=== PATIENT | female | born 1980 | race Caucasian/White ===

== ENCOUNTER 2016-10-14 20:36 | Emergency (ER) | payer OTHER ==
[2016-10-14 20:59] VITALS: BP 113/62
[2016-10-14] MEDS ORDERED: Amoxicillin CAP* 500 MG PO ONE (21:24)
--- NOTE | 2016-10-14 21:29 | UC ---
Ear Complaint HPI - HPI Summary HPI Summary: pt c/o gradual onset of left ear pain. Pt has history of OM. - History of Current Complaint Chief Complaint: UCEar Stated Complaint: EAR PAIN Time Seen by Provider: 10/14/16 21:17 Hx Obtained From: Patient Hx Last Menstrual Period: mirana ?: No Onset/Duration: Gradual Onset, Lasting Days Severity Initially: Mild Severity Currently: Mild - Allergies/Home Medications Allergies/Adverse Reactions: Allergies Allergy/AdvReac Type Severity Reaction Status Date / Time No Known Allergies Allergy Verified 10/14/16 20:59 Home Medications: Home Medications Levonorgestrel (Iud) [Mirena IUD] 20 mcg IU 10/14/16 [History] PMH/Surg Hx/FS Hx/Imm Hx Previously Healthy: Yes - Surgical History Surgical History: Yes Surgery Procedure, Year, and Place: gallbladder removed, tubaligation, T&A - Family History Known Family History: Positive: Cardiac Disease - Social History Occupation: Employed Full-time Alcohol Use: None Substance Use Type: None Smoking Status (MU): Former Smoker Review of Systems Constitutional: Negative Skin: Negative Eyes: Negative ENT: Ear Ache Respiratory: Negative Cardiovascular: Negative Gastrointestinal: Negative Genitourinary: Negative Motor: Negative Neurovascular: Negative Musculoskeletal: Negative Neurological: Negative Psychological: Negative All Other Systems Reviewed And Are Negative: Yes Physical Exam Triage Information Reviewed: Yes Vital Signs: Initial Vital Signs Temp 98.0 F 10/14/16 20:53 Pulse 76 10/14/16 20:53 Resp 18 10/14/16 20:53 BP 113/62 10/14/16 20:53 Pulse Ox 98 10/14/16 20:53 Eye Exam: Normal ENT: Positive: TM bulging - left TM, TM red - left TM Neck exam: Normal Respiratory Exam: Normal Cardiovascular Exam: Normal Musculoskeletal Exam: Normal Neurological Exam: Normal Psychological Exam: Normal Skin Exam: Normal Ear Complaint Course/Dx - Differential Dx/Diagnosis Differential Diagnosis/HQI/PQRI: Otitis Media Provider Diagnoses: otitis media left TM Discharge - Discharge Plan Condition: Stable Disposition: HOME Prescriptions: Amoxicillin CAP* [Amoxicillin 500 MG CAP*] 500 mg PO Q12H #14 cap Patient Education Materials: Otitis Media (ED) Referrals: [facility] [Outside]
== END 2016-10-14 21:39 | disposition home or self-care (01) ==
LOC: UCCORT 20:36
DX: H66.92 Otitis media, unspecified, left ear (principal); H72.92 Unspecified perforation of tympanic membrane, left ear; Z90.49 Acquired absence of other specified parts of digestive tract; Z87.891 Personal history of nicotine dependence
CPT/HCPCS: 99202; A9270-GY; G0463

== ENCOUNTER 2016-10-16 20:23 | Emergency (ER) | payer OTHER ==
[2016-10-16 20:30] VITALS: BP 120/69
[2016-10-16] MEDS ORDERED: Neomyc/Polym/HC 1% OTIC SUSP* **OTIC LEFT EAR ONE (20:38)
[2016-10-16] MEDS ORDERED: HYDROcodone/ACETAMIN 5-325 MG* 1 TAB PO ONE ×2 (20:39)
--- NOTE | 2016-10-16 21:00 | UC ---
Ear Complaint HPI - HPI Summary HPI Summary: 36 yo female with severe left ear pain x days seen here 2 days ago with OM now left ear canal swollen and left cervical adenopathy no f/c 2 yrs ago had bilateral OE and requires ear tod in both ears - History of Current Complaint Chief Complaint: UCEar Stated Complaint: LFT EAR PAIN Time Seen by Provider: 10/16/16 20:32 Hx Obtained From: Patient Hx Last Menstrual Period: mirena Onset/Duration: Gradual Onset, Lasting Days, Worse Since - 1 day Pain Intensity: 8 Pain Scale Used: 0-10 Numeric Alleviating Factors: Heat Associated Signs/Symptoms: Positive: Swelling @ - L EAC Related History: Prior ENT Surgery, T & A - Allergies/Home Medications Allergies/Adverse Reactions: Allergies Allergy/AdvReac Type Severity Reaction Status Date / Time No Known Allergies Allergy Verified 10/16/16 20:30 PMH/Surg Hx/FS Hx/Imm Hx Previously Healthy: Yes - Surgical History Surgical History: Yes Surgery Procedure, Year, and Place: gallbladder removed, tubaligation, T&A - Family History Known Family History: Positive: Cardiac Disease - Social History Alcohol Use: None Substance Use Type: None Smoking Status (MU): Former Smoker Review of Systems Constitutional: Negative Skin: Negative Eyes: Negative ENT: Ear Ache Respiratory: Negative Cardiovascular: Negative Gastrointestinal: Negative Genitourinary: Negative Motor: Negative Neurovascular: Negative Musculoskeletal: Negative Neurological: Negative Psychological: Negative All Other Systems Reviewed And Are Negative: Yes Physical Exam Triage Information Reviewed: Yes Appearance: Well-Appearing, No Pain Distress, Well-Nourished Vital Signs: Initial Vital Signs Temp 98 F 10/16/16 20:25 Pulse 75 10/16/16 20:25 Resp 14 10/16/16 20:25 BP 120/69 10/16/16 20:25 Pulse Ox 98 10/16/16 20:25 Vital Signs Reviewed: Yes Eyes: Positive: Conjunctiva Clear ENT: Positive: TM bulging - L, TM red - L, Other: - left tragal tenderness, left EAC swollen about 50 %. Negative: Hearing grossly normal, Tonsillar swelling, Tonsillar exudate, Trismus, Muffled/hoarse voice Dental: Negative: Dental Fracture @, Abscess @ Neck: Positive: Supple, Enlarged Nodes @ - left cervical Respiratory: Positive: Lungs clear, Normal breath sounds, No respiratory distress Cardiovascular: Positive: RRR, No Murmur Musculoskeletal: Positive: Strength Intact Neurological: Positive: Alert Psychological Exam: Normal Skin Exam: Normal Ear Complaint Course/Dx - Differential Dx/Diagnosis Provider Diagnoses: Left otitis externa. left otitis media Discharge - Discharge Plan Condition: Stable Disposition: HOME Prescriptions: HYDROcodone/ACETAMIN 5-325 MG* [Christiana 5-325 TAB*] 1 tab PO Q4H PRN #8 tab MDD 4 PRN Reason: Pain Ibuprofen TAB* [Motrin TAB*] 600 mg PO Q6H PRN #40 tab PRN Reason: Pain Patient Education Materials: Otitis Externa (ED) Forms: *Work Release Referrals: Kimmie Farrell MD [Primary Care Provider] - Additional Instructions: in addition to the middle ear infection you also have an infection of your ear canal heating pad recheck in 2-3 days if not improving
== END 2016-10-16 21:00 | disposition home or self-care (01) ==
LOC: UCCORT 20:23
DX: H60.92 Unspecified otitis externa, left ear (principal); H66.92 Otitis media, unspecified, left ear; Z90.49 Acquired absence of other specified parts of digestive tract; Z87.891 Personal history of nicotine dependence
CPT/HCPCS: 99213; A9270-GY; G0463

== ENCOUNTER 2017-01-01 12:07 | Emergency (ER) | payer OTHER ==
[2017-01-01 13:31] VITALS: BP 111/68
--- NOTE | 2017-01-01 13:53 | UC ---
Ear Complaint HPI - HPI Summary HPI Summary: right ear pain for a few days. this feels similar to two prior otitis externas. last one was a few years ago. - History of Current Complaint Chief Complaint: UCEar Stated Complaint: EAR PAIN Time Seen by Provider: 01/01/17 13:41 Hx Obtained From: Patient Hx Last Menstrual Period: HAS THE MIRENA, DOES NOT HAVE REG PERIODS Onset/Duration: Gradual Onset, Lasting Days Severity Initially: Mild Severity Currently: Moderate Aggravating Factors: Nothing Alleviating Factors: Nothing Associated Signs/Symptoms: Negative: Discharge, Hearing Loss, Foreign Body Sensation, Trauma to Ear, URI Symptoms - Allergies/Home Medications Allergies/Adverse Reactions: Allergies Allergy/AdvReac Type Severity Reaction Status Date / Time No Known Allergies Allergy Verified 01/01/17 13:24 PMH/Surg Hx/FS Hx/Imm Hx Previously Healthy: No - prior OE - Surgical History Surgical History: Yes Surgery Procedure, Year, and Place: gallbladder removed, tubaligation, T&A. C- SECTIONS-TWO - Family History Known Family History: Positive: Cardiac Disease - Social History Lives: With Family Alcohol Use: None Substance Use Type: None Smoking Status (MU): Former Smoker When Did the Patient Quit Smoking/Using Tobacco: 5 MONTHS AGO Review of Systems ENT: Ear Ache All Other Systems Reviewed And Are Negative: Yes Physical Exam Triage Information Reviewed: Yes Appearance: Well-Appearing, No Pain Distress, Well-Nourished Vital Signs: Initial Vital Signs Temp 98.4 F 01/01/17 13:24 Pulse 75 01/01/17 13:24 Resp 18 01/01/17 13:24 BP 111/68 01/01/17 13:24 Pulse Ox 99 01/01/17 13:24 Vital Signs Reviewed: Yes Eye Exam: Normal ENT: Positive: Pharynx normal, TMs normal, Other: - right tragal tenderness without redness or swelling. there is also external canal redness and thickinging with slight discharge. No mastoid tenderness.. Negative: Pharyngeal erythema, Nasal congestion, Tonsillar swelling, Tonsillar exudate, Trismus Ear Complaint Course/Dx - Differential Dx/Diagnosis Provider Diagnoses: otitis externa. right. Discharge - Discharge Plan Condition: Good Disposition: HOME Prescriptions: Ciproflox/Dexameth OTIC.SUSP* [Ciprodex OTIC.SUSP*] 2 drop .SEE ORDER TID #1 btl Patient Education Materials: Otitis Externa (ED) Referrals: Kimmie Farrell MD [Primary Care Provider] - If Needed
== END 2017-01-01 13:56 | disposition home or self-care (01) ==
LOC: UCCORT 12:07
DX: H60.91 Unspecified otitis externa, right ear (principal); Z90.49 Acquired absence of other specified parts of digestive tract; Z87.891 Personal history of nicotine dependence
CPT/HCPCS: 99212; G0463

== ENCOUNTER 2017-01-03 19:26 | Emergency (ER) | payer OTHER ==
--- NOTE | 2017-01-03 19:31 | UC ---
Ear Complaint HPI - HPI Summary HPI Summary: 36 YEAR OLD FEMALE PRESENTS WITH RIGHT SIDED EAR PAIN. PATIENT WAS RECENTLY SEEN AND GIVEN CIPRODEX. - History of Current Complaint Stated Complaint: RIGHT EAR PAIN Time Seen by Provider: 01/03/17 19:29 Hx Last Menstrual Period: HAS THE MIRENA, DOES NOT HAVE REG PERIODS Onset/Duration: Sudden Onset Severity Initially: Moderate Severity Currently: Moderate Pain Scale Used: 0-10 Numeric - 8 Aggravating Factors: Nothing Alleviating Factors: Nothing Related History: Seasonal Allergies - Allergies/Home Medications Allergies/Adverse Reactions: Allergies Allergy/AdvReac Type Severity Reaction Status Date / Time No Known Allergies Allergy Verified 01/03/17 19:44 PMH/Surg Hx/FS Hx/Imm Hx Previously Healthy: Yes - Surgical History Surgical History: Yes Surgery Procedure, Year, and Place: gallbladder removed, tubaligation, T&A. C- SECTIONS-TWO - Family History Known Family History: Positive: Cardiac Disease - Social History Alcohol Use: None Substance Use Type: None Smoking Status (MU): Former Smoker When Did the Patient Quit Smoking/Using Tobacco: 5 MONTHS AGO Review of Systems Constitutional: Negative Skin: Negative Eyes: Negative ENT: Ear Ache Respiratory: Negative Cardiovascular: Negative Gastrointestinal: Negative Genitourinary: Negative Motor: Negative Neurovascular: Negative Musculoskeletal: Negative Neurological: Negative Psychological: Negative All Other Systems Reviewed And Are Negative: Yes Physical Exam Triage Information Reviewed: Yes Vital Signs Reviewed: Yes Eye Exam: Normal ENT: Positive: Nasal congestion, Other: - RIGHT EXTERNAL OTITIS EXTERNA Dental Exam: Normal Neck exam: Normal Neck: Positive: 1 Respiratory Exam: Normal Cardiovascular Exam: Normal Abdominal Exam: Normal Musculoskeletal Exam: Normal Neurological Exam: Normal Psychological Exam: Normal Skin Exam: Normal Ear Complaint Course/Dx - Course Course Of Treatment: VISCOUS LIDOCAINE PLACED IN RIGHT EAR FOR PAIN - Differential Dx/Diagnosis Provider Diagnoses: RIGHT OTITIS EXTERNA Discharge - Discharge Plan Condition: Stable Disposition: HOME Prescriptions: Amoxicillin PO (*) [Amoxicillin 875 MG (*)] 875 mg PO BID #14 tab Methylprednisolone [Medrol Dosepak 4 MG*] 4 mg PO .SEE ADARSH INSTRUCTION #21 tab Neomyc/Polym/HC 1% OTIC SUSP* [Cortisporin Otic Susp 1%*] 4 drop RIGHT EAR QID # 1 btl Patient Education Materials: Otitis Externa (ED) Referrals: Kimmie Farrell MD [Medical Doctor] -
[2017-01-03] MEDS ORDERED: Lidocaine 2% VISCOUS* 15 ML UDC PO ONE (19:40)
[2017-01-03 19:44] VITALS: BP 115/77
== END 2017-01-03 20:00 | disposition home or self-care (01) ==
LOC: UCCORT 19:26
DX: H60.501 Unspecified acute noninfective otitis externa, right ear (principal)